=== PATIENT | male | born 1980 ===

== ENCOUNTER 2021-04-21 16:17 | Emergency (ER) | payer SELFPAY | END 2021-04-21 17:38 | disposition left against medical advice (07) | LOC: EMS 16:20 | DX: F10.129 Alcohol abuse with intoxication, unspecified (principal); R06.02 Shortness of breath; Y90.9 Presence of alcohol in blood, level not specified; Z53.21 Procedure and treatment not carried out due to patient leaving prior to being seen by health care provider ==

== ENCOUNTER 2021-05-12 20:04 | Inpatient (IN) | payer MEDICAID ==
[~2021-05-12] VITALS: Ht 170.2 cm; Wt 102.6 kg
[2021-05-12] MEDS ORDERED: HALOPERIDOL LACTATE 5 MG/ML VIAL ONE (20:10)
[2021-05-12] MEDS ORDERED: DiphenhydrAMINE HCL 50 MG/ML VIAL ONE (20:10)
[2021-05-12] MEDS ORDERED: LORazepam 2 MG/ML VIAL ONE (20:10)
[2021-05-12] MEDS ORDERED: HALOPERIDOL LACTATE 5 MG/ML VIAL IM ONE (20:15)
[2021-05-12] MEDS ORDERED: DiphenhydrAMINE HCL 50 MG/ML VIAL IM ONE (20:15)
[2021-05-12] MEDS ORDERED: LORazepam 2 MG/ML VIAL IM ONE (20:15)
[2021-05-12 21:40] LABS: BASOPHILS % (AUTO) 0.8 % (0.0-2.0); EOSINOPHILS % (AUTO) 0.7 % (1.0-6.0); HEMATOCRIT 44.6 % (41-53); HEMOGLOBIN 15.1 g/dL (13.5-17.5); LYMPHOCYTES # (AUTO) 1.8 K/uL (1.0-4.8); LYMPHOCYTES % (AUTO) 20.6 % (22.0-44.0); MEAN CORPUSCULAR HEMOGLOBIN 30.5 pg (26.0-34.0); MEAN CORPUSCULAR HGB CONC 33.9 G/dL (31.0-37.0); MEAN CORPUSCULAR VOLUME 90 fL (80-100); MONOCYTES # (AUTO) 1.2 K/uL (0.1-1.0); MONOCYTES % (AUTO) 13.2 % (2.0-9.0); NEUTROPHILS # (AUTO) 5.7 K/uL (1.8-7.7); NEUTROPHILS % (AUTO) 64.7 % (40.0-70.0); PLATELET COUNT (AUTO) 190 K/uL (150-450); RED BLOOD CELL COUNT(AUTO) 4.95 MIL/uL (4.50-5.90); RED CELL DISTRIBUTION WIDTH 14.6 % (11.5-14.5)
[2021-05-12 22:01] LABS: ANION GAP 17 mmol/L (8-16); CALCIUM, TOTAL 8.2 mg/dL (8.8-10.5); CARBON DIOXIDE 24 mmol/L (22-29); CHLORIDE 101 mmol/L (98-107); CREATININE 0.94 mg/dL (0.60-1.30); GLOMERULAR FILTR. RATE CALC > 60 mL/min (>60); GLUCOSE,RANDOM 128 mg/dL (70-110); POTASSIUM 3.2 mmol/L (3.5-5.1); SODIUM SERUM 142 mmol/L (136-145); UREA NITROGEN, BLOOD 18 mg/dL (7-18)
[2021-05-12 22:06] LABS: COVID AG,FIA SOURCE NASOPHARYNGEAL
[2021-05-12 22:23] LABS: ALANINE AMINOTRANSFERASE 153 U/L (12-78); ALBUMIN 3.9 g/dL (3.4-5.0); ALKALINE PHOSPHATASE 92 U/L (46-116); ASPARTATE AMINOTRANSFERASE 106 U/L (15-37); BILIRUBIN,TOTAL 0.7 mg/dL (0.1-1.0); CREATINE KINASE, TOTAL ONLY 985 U/L (39-308); TOTAL PROTEIN, SERUM 8.1 g/dL (6.4-8.2)
[2021-05-12] MEDS ORDERED: SODIUM CHLORIDE 0.9% 1,000 ML IV ONE (22:45)
[2021-05-12 23:46] LABS: AMPHET/METH SCREEN,URINE POSITIVE (NEGATIVE); BARBITURATE SCREEN, URINE NEGATIVE (NEGATIVE); BENZODIAZEPINES SCREEN,URINE NEGATIVE (NEGATIVE); CANNABINOID SCREEN,URINE NEGATIVE (NEGATIVE); COCAINE SCREEN,URINE NEGATIVE (NEGATIVE); METHADONE SCREEN, URINE NEGATIVE (NEGATIVE); OPIATE SCREEN,URINE NEGATIVE (NEGATIVE)
[2021-05-12 23:47] LABS: PHENCYCLIDINE SCREEN,URINE NEGATIVE (NEGATIVE)
[2021-05-13 03:08] VITALS: BP 150/98
[2021-05-13] MEDS ORDERED: INFLUENZA VIRUS VACCINE QVS 2021-22 (6MO+)/PF 60 MCG/0.5 ML SYRINGE IM. ONE (05:30)
[2021-05-13 05:38] LABS: APPEARANCE,URINE TURBID (CLEAR); BILIRUBIN,URINE NEGATIVE (NEGATIVE); GLUCOSE, URINE (UA) NEGATIVE (NEGATIVE); KETONES,URINE NEGATIVE (NEGATIVE); LEUKOCYTE ESTERASE ,URINE NEGATIVE (NEGATIVE); NITRATE,URINE NEGATIVE (NEGATIVE); OCCULT BLOOD,URINE NEGATIVE (NEGATIVE); PH,URINE 5.5 (5.0-8.0); PROTEIN,URINE TRACE (NEGATIVE)
[2021-05-13 05:39] LABS: AMORPHOUS SEDIMENT,UR Moderate /LPF (None Seen); BACTERIA,URINE Many /HPF (None Seen); RBC,URINE 0-2 /HPF (0-2); WBC,URINE 0-2 /HPF (0-5)
[2021-05-13 06:21] LABS: CHOL/HDL RATIO 2.7 (4.2-7.3); CHOLESTEROL 144 mg/dL (131-200); HDL CHOLESTEROL 54 mg/dL (40-60); LDL CHOL (CALC.) 78 mg/dL (0-130); TRIGLYCERIDES 59 mg/dL (15-150)
[2021-05-13 08:40] VITALS: BP 110/70
[2021-05-13 08:45] VITALS: BP 110/70
[2021-05-13] MEDS ORDERED: LOPERAMIDE HCL 2 MG CAPSULE PO PRN (09:45)
[2021-05-13] MEDS ORDERED: ONDANSETRON HCL 4 MG TABLET PO PRN (09:45)
[2021-05-13] MEDS ORDERED: MAG HYDROX/AL HYDROX/SIMETH ES 30 ML SUSPENSION UDCUP PO PRN (09:45)
[2021-05-13] MEDS ORDERED: MAGNESIUM HYDROXIDE SUSPENSION 30 ML UDCUP PO PRN (09:45)
[2021-05-13] MEDS ORDERED: DOCUSATE SODIUM 100 MG CAPSULE PO PRN (09:45)
[2021-05-13] MEDS ORDERED: NICOTINE 14 MG/24 HOUR PATCH TD PRN (09:45)
[2021-05-13] MEDS ORDERED: ACETAMINOPHEN 325 MG TABLET PO PRN (09:45)
[2021-05-13] MEDS ORDERED: IBUPROFEN 400 MG TABLET PO PRN (09:45)
[2021-05-13] MEDS ORDERED: CloNIDine HCL 0.1 MG TABLET PO PRN (09:45)
[2021-05-13] MEDS ORDERED: PETROLATUM,WHITE 28 GM JELLY TP PRN (09:45)
[2021-05-13] MEDS ORDERED: ALBUTEROL SULFATE HFA 90 MCG/PUFF 8 GM INHALER IH PRN (09:45)
[2021-05-13] MEDS ORDERED: GuaiFENesin/D-METHORPHAN [SUGAR-FREE] 200-20MG/10 ML SYRUP UDCUP PO PRN (09:45)
[2021-05-13] MEDS: RisperiDONE 1 MG TABLET PO SCH ×2 (10:34→16:25)
[2021-05-13 16:00] VITALS: BP 128/76
[2021-05-13 16:26] VITALS: BP 128/76
[2021-05-14 08:00] VITALS: BP 145/94
[2021-05-14] MEDS: RisperiDONE 1 MG TABLET PO SCH ×2 (08:17→16:10)
[2021-05-14 16:00] VITALS: BP 148/78
[2021-05-14] MEDS: LORazepam 2 MG TABLET PO PRN (16:35)
[2021-05-14 19:31] VITALS: BP 149/78
[2021-05-14] MEDS: ZOLPIDEM TARTRATE 10 MG TABLET PO PRN (20:19)
[2021-05-15] MEDS: LORazepam 2 MG TABLET PO PRN ×2 (01:45→20:14)
[2021-05-15 08:00] VITALS: BP 130/84
[2021-05-15] MEDS: RisperiDONE 1 MG TABLET PO SCH ×2 (09:57→16:27)
[2021-05-15 16:05] VITALS: BP 119/79
[2021-05-15] MEDS: HALOPERIDOL 5 MG TABLET PO PRN (16:27)
[2021-05-15] MEDS: ZOLPIDEM TARTRATE 10 MG TABLET PO PRN (20:41)
[2021-05-16] MEDS: RisperiDONE 1 MG TABLET PO SCH ×2 (09:37→16:22)
[2021-05-16 10:09] VITALS: BP 148/82
[2021-05-16] MEDS: LORazepam 2 MG TABLET PO PRN (15:47)
[2021-05-16 16:25] VITALS: BP 133/92
[2021-05-16] MEDS: ZOLPIDEM TARTRATE 10 MG TABLET PO PRN (20:01)
[2021-05-16] MEDS: HALOPERIDOL 5 MG TABLET PO PRN (20:01)
[2021-05-17] MEDS: RisperiDONE 1 MG TABLET PO SCH (09:21)
[2021-05-17] MEDS: LORazepam 2 MG TABLET PO PRN ×2 (13:38→18:03)
[2021-05-17] MEDS: HALOPERIDOL 5 MG TABLET PO PRN (15:55)
[2021-05-17 16:43] VITALS: BP 112/71
[2021-05-17] MEDS: ZOLPIDEM TARTRATE 10 MG TABLET PO PRN (20:05)
[2021-05-17] MEDS: RisperiDONE 2 MG TABLET PO SCH (20:05)
[2021-05-18] MEDS: RisperiDONE 2 MG TABLET PO SCH (07:47)
[2021-05-18] MEDS: LORazepam 2 MG TABLET PO PRN (07:47)
[2021-05-18 08:00] VITALS: BP 117/74
[2021-05-18] MEDS ORDERED: RISP2TAB45 PO (13:24)
== END 2021-05-18 16:47 | disposition home or self-care (01) | DRG 885 ==
LOC: EMS 20:17 → 3EC 21:59
PROVIDERS: ADMIT Psychiatry & Neurology Child & Adolescent Psychiatry; ATTEND Psychiatry & Neurology Child & Adolescent Psychiatry
DX: F20.0 Paranoid schizophrenia (principal); M62.82 Rhabdomyolysis; E66.9 Obesity, unspecified; Z68.35 Body mass index [BMI] 35.0-35.9, adult; E87.6 Hypokalemia; F10.10 Alcohol abuse, uncomplicated; F15.90 Other stimulant use, unspecified, uncomplicated; Z71.41 Alcohol abuse counseling and surveillance of alcoholic; Z78.1 Physical restraint status
CPT/HCPCS: 80053; 80061; 81001; 82550; 85025; 87086; 99291; G0480; J1200; J1630; J2060; J7030

== ENCOUNTER 2024-02-08 16:11 | Emergency (ER) | payer OTHER, SELFPAY ==
[~2024-02-08 16:11] MED LIST: RISP2TAB45 PO
== END 2024-02-08 17:25 | disposition left against medical advice (07) ==
LOC: EMS 16:21
DX: R19.7 Diarrhea, unspecified (principal); Z53.21 Procedure and treatment not carried out due to patient leaving prior to being seen by health care provider